=== PATIENT | female | born 1950 | race Caucasian/White ===

== ENCOUNTER 2017-12-03 17:48 | Emergency (ER) | payer MEDICARE ==
[~2017-12-03] VITALS: Ht 160 cm; Wt 66.4 kg
[~2017-12-03 17:48] MED LIST: ASPI-611 PO; CARB1TAB44 PO; ESTR2TAB PO; FENO145T38 PO; FERR325C; FLEC100T2 PO; FURO-150 PO; GABA-532 PO; MULT-342 PO; NITR0.4T48 SL; SIMV40TA4 PO
[2017-12-03 17:53] VITALS: BP 177/85
[2017-12-03] MEDS ORDERED: CIPR10DR LEFT EAR (18:39)
[2017-12-03] MEDS ORDERED: AZIT-57 PO (18:39)
[2017-12-03] MEDS ORDERED: FLUT16SP2 BOTHNARES (18:39)
== END 2017-12-03 18:59 | disposition home or self-care (01) ==
LOC: ER 17:49
DX: H66.92 Otitis media, unspecified, left ear (principal); I25.10 Atherosclerotic heart disease of native coronary artery without angina pectoris; I25.2 Old myocardial infarction; G89.29 Other chronic pain; Z95.1 Presence of aortocoronary bypass graft; Z90.710 Acquired absence of both cervix and uterus; Z98.890 Other specified postprocedural states; Z87.891 Personal history of nicotine dependence; Z88.8 Allergy status to other drugs, medicaments and biological substances; Z88.5 Allergy status to narcotic agent; Z79.82 Long term (current) use of aspirin; Z79.899 Other long term (current) drug therapy
CPT/HCPCS: 99283

== ENCOUNTER 2019-09-02 09:07 | Day surgery (SDC) | payer MEDICARE ==
[2019-09-02] VITALS (10 sets, daily range): BP systolic 104–175; BP diastolic 47–69
[~2019-09-02] VITALS: Ht 162.6 cm; Wt 70.4 kg
[~2019-09-02 09:07] MED LIST changes: +FLUT16SP2 BOTHNARES; +SIMV-45 PO; -SIMV40TA4 PO
[2019-09-02] MEDS ORDERED: normal saline 1,000 ML IV SCH (09:35)
[2019-09-02] MEDS ORDERED: diphenhydrAMINE 25mg capsule PO PRN (09:35)
[2019-09-02] MEDS ORDERED: DIAZ5TAB4 PO (09:51)
[2019-09-02] MEDS ORDERED: ATOR40TA PO (09:51)
[2019-09-02] MEDS ORDERED: GABA-769 PO (09:51)
[2019-09-02] MEDS ORDERED: LIDOcaine 1% (10mg/ml)w/preservative injection 20ml MDV ONE (10:01)
[2019-09-02] MEDS ORDERED: iohexol 350 MG/ML 50ML vial IV ONE (10:01)
[2019-09-02] MEDS ORDERED: iohexol 350MG/ML 100ml bottle IV ONE ×2 (10:01→11:18)
[2019-09-02] MEDS ORDERED: heparin 1,000unit/ml 10ml vial 10 ML ONE (10:01)
[2019-09-02 10:34] LABS: BASOPHILS % (AUTO) 1.1 % (0-1); EOSINOPHILS # (AUTO) 0.2 X10'3 (0-0.9); EOSINOPHILS % (AUTO) 4.1 % (0-6); HEMATOCRIT 36.8 % (35.0-45.0); HEMOGLOBIN 12.7 g/dl (12.0-16.0); LYMPHOCYTES # (AUTO) 1.8 X10'3 (1.1-4.8); LYMPHOCYTES % (AUTO) 40.2 % (21-51); MEAN CORPUSCULAR HGB CONC 34.6 g/dL (33.0-36.5); MEAN CORPUSCULAR VOLUME 89.7 FL (78-98); MEAN PLATELET VOLUME 8.6 FL (7.4-10.4); MONOCYTES # (AUTO) 0.3 X10'3 (0-0.9); MONOCYTES % (AUTO) 6.6 % (2-12); NEUTROPHILS # (AUTO) 2.2 X10'3 (1.8-7.7); PLATELET COUNT 233 X10'3 (140-440); RED CELL DISTRIBUTION WIDTH 13.3 % (11.5-14.5); WHITE BLOOD COUNT 4.5 X10'3 (4.5-11.0)
[2019-09-02] MEDS ORDERED: fentaNYL/PF 50MCG/1 ML 2ML syringe ONE (10:37)
[2019-09-02] MEDS ORDERED: diphenhydrAMINE 50 mg/ml inj ONE (10:37)
[2019-09-02] MEDS ORDERED: midazolam 2 mg/2 ml injection ONE ×2 (10:38→10:53)
[2019-09-02 10:45] LABS: ALBUMIN 3.4 G/DL (3.4-5.0); ANION GAP 5 (8-16); BLOOD UREA NITROGEN 13 MG/DL (7-18); BUN/CREATININE RATIO 16.7 (6.6-38.0); CALCIUM 8.5 MG/DL (8.5-10.1); CHLORIDE 108 MMOL/L (99-107); CREATININE 0.78 MG/DL (0.40-0.90); GLUCOSE 83 MG/DL (70-104); MAGNESIUM 1.9 MG/DL (1.5-2.4); SODIUM 140 MMOL/L (135-145); TOTAL CARBON DIOXIDE 26.9 MMOL/L (24-32); eGFR 73 ML/MIN
[2019-09-02 10:46] LABS: POTASSIUM 4.7 MMOL/L (3.5-5.1)
[2019-09-02] MEDS ORDERED: proCHLORperazine 10 MG/2 ml inj ONE (10:53)
[2019-09-02] MEDS ORDERED: HYDROcodone/acetaminophen 5mg/325mg tablet PO PRN (11:55)
[2019-09-02] MEDS ORDERED: proCHLORperazine 10 MG/2 ml inj IV PRN (11:55)
[2019-09-02] MEDS ORDERED: ondansetron/PF 4mg/2ml inj IV PRN (11:55)
[2019-09-02] MEDS ORDERED: HYDROcodone/acetaminophen 10/325mg tab PO PRN (11:55)
== END 2019-09-02 15:30 | disposition home or self-care (01) ==
LOC: SSTAY O 09:07 → MED 3N 09:08 → SSTAY O 15:30
PROVIDERS: ATTEND Internal Medicine Cardiovascular Disease
DX: R94.39 Abnormal result of other cardiovascular function study (principal); T82.855A Stenosis of coronary artery stent, initial encounter; I25.119 Atherosclerotic heart disease of native coronary artery with unspecified angina pectoris; I10 Essential (primary) hypertension; E03.9 Hypothyroidism, unspecified; G89.29 Other chronic pain; F32.9 Major depressive disorder, single episode, unspecified; G40.909 Epilepsy, unspecified, not intractable, without status epilepticus; I48.0 Paroxysmal atrial fibrillation; E78.00 Pure hypercholesterolemia, unspecified; Z87.11 Personal history of peptic ulcer disease; Z90.710 Acquired absence of both cervix and uterus; Z98.890 Other specified postprocedural states; Z79.899 Other long term (current) drug therapy; Z87.891 Personal history of nicotine dependence; Z88.5 Allergy status to narcotic agent; Z88.8 Allergy status to other drugs, medicaments and biological substances; Y83.8 Other surgical procedures as the cause of abnormal reaction of the patient, or of later complication, without mention of misadventure at the time of the procedure; Y92.89 Other specified places as the place of occurrence of the external cause; Z82.49 Family history of ischemic heart disease and other diseases of the circulatory system; Z80.0 Family history of malignant neoplasm of digestive organs
CPT/HCPCS: 36415; 80048; 83735; 85025; 93005; 93459; 99152; 99153; C1769; C1894; J0780; J1200; J1644; J2001; J2250; J3010; Q9967; A4620; A6258; C1751; C1760; GO378

== ENCOUNTER 2019-10-28 05:44 | Day surgery (SDC) | payer MEDICARE ==
[2019-10-21 14:01] LABS: BASOPHILS % (AUTO) 0.8 % (0-1); EOSINOPHILS # (AUTO) 0.1 X10'3 (0-0.9); EOSINOPHILS % (AUTO) 2.7 % (0-6); LYMPHOCYTES # (AUTO) 1.8 X10'3 (1.1-4.8); LYMPHOCYTES % (AUTO) 38.9 % (21-51); MEAN CORPUSCULAR HEMOGLOBIN 30.9 PG (27.0-31.0); MEAN CORPUSCULAR HGB CONC 33.8 g/dL (33.0-36.5); MEAN CORPUSCULAR VOLUME 91.4 FL (78-98); MEAN PLATELET VOLUME 8.4 FL (7.4-10.4); MONOCYTES # (AUTO) 0.3 X10'3 (0-0.9); MONOCYTES % (AUTO) 7.1 % (2-12); NEUTROPHILS # (AUTO) 2.3 X10'3 (1.8-7.7); NEUTROPHILS % (AUTO) 50.5 % (42-75); PRE OP HEMATOCRIT 40.2 % (35.0-45.0); PRE OP HEMOGLOBIN 13.6 g/dL (12.0-16.0); PRE OP PLATELET COUNT 266 X10'3 (140-440)
[2019-10-21 14:05] LABS: ALBUMIN 3.7 G/DL (3.4-5.0); ALBUMIN/GLOBULIN RATIO 1.1 (1.1-1.5); ALKALINE PHOSPHATASE 53 IU/L (46-116); BLOOD UREA NITROGEN 14 MG/DL (7-18); BUN/CREATININE RATIO 16.5 (6.6-38.0); CALCIUM 8.8 MG/DL (8.5-10.1); CHLORIDE 106 MMOL/L (99-107); CREATININE 0.85 MG/DL (0.40-0.90); PRE OP ALT 16 U/L (30-65); PRE OP ANION GAP 4 (8-16); PRE OP AST 16 U/L (10-37); PRE OP BILIRUB, TOTAL 0.2 MG/DL (0.0-1.0); PRE OP GLUCOSE 86 MG/DL (70-104); PRE OP POTASSIUM 4.8 MMOL/L (3.4-5.1); PRE OP SODIUM 139 MMOL/L (135-145); TOTAL CARBON DIOXIDE 28.6 MMOL/L (24-32); TOTAL PROTEIN 7.1 G/DL (6.4-8.2); eGFR 66 ML/MIN
[2019-10-28] VITALS (8 sets, daily range): BP systolic 135–148; BP diastolic 62–76
[~2019-10-28] VITALS: Ht 162.6 cm; Wt 70.8 kg
[~2019-10-28 05:44] MED LIST changes: +ATOR40TA PO; -CARB1TAB44 PO; +COQ PO; +DIAZ5TAB4 PO; +DUTA0.5C40 PO; -FENO145T38 PO; +FENO67CA PO; -FERR325C; -FLEC100T2 PO; +FLEC50TA28 PO; -FLUT16SP2 BOTHNARES; -FURO-150 PO; -GABA-532 PO; +GABA-769 PO; +NORT25CA5 PO; -SIMV-45 PO; +ceFAZolin 2gm in dextrose, iso 50 ML IV ONE; +famotidine 20mg tablet PO ONE; +ringers solution, lacted 1,000 ML IV SCH; +vancomycin 1,500 MG in NS 500ml IV soln IV ONE
[2019-10-28] MEDS ORDERED: LIDOcaine 1% (10mg/ml) 2ml vial ONE (07:44)
[2019-10-28] MEDS ORDERED: cloNIDine hcl/PF 100mcg/ml inj ONE (08:15)
[2019-10-28] MEDS ORDERED: LIDOcaine 2% 5ml jelly ONE (08:21)
[2019-10-28] MEDS ORDERED: TRANEXAMIC ACID 1 GM IN NACL,ISO-OS 100 ML IV ONE (08:45)
[2019-10-28] MEDS ORDERED: fentaNYL/PF 50MCG/1 ML 2ML syringe ONE (08:48)
[2019-10-28] MEDS ORDERED: midazolam 2 mg/2 ml injection ONE (08:51)
[2019-10-28] MEDS ORDERED: sevoflurane 250ml liquid IH ONE (08:54)
[2019-10-28] MEDS ORDERED: rocuronium 10mg/ml inj IV ONE (09:25)
[2019-10-28] MEDS ORDERED: propofol inj 20 ML IV ONE (09:25)
[2019-10-28] MEDS ORDERED: ROPIVAcaine 0.5% (5mg/ml) 30ml vial ONE (09:25)
[2019-10-28] MEDS ORDERED: LIDOcaine 2% (20mg/ml) 5ml vial ONE (09:25)
[2019-10-28] MEDS ORDERED: LIDOcaine 1%/PF 5ML 10 MG/ML VIAL ONE (09:26)
[2019-10-28] MEDS ORDERED: dexamethasone sod phosphate 4mg/ml inj. ONE (09:26)
[2019-10-28] MEDS ORDERED: ePHEDrine 50MG/ML INJ. ONE (09:54)
[2019-10-28] MEDS ORDERED: 0.9 % SODIUM CHLORIDE 10 ML VIAL ONE (09:54)
[2019-10-28] MEDS ORDERED: ondansetron/PF 4mg/2ml inj ONE (10:03)
[2019-10-28] MEDS ORDERED: HYDROcodone/acetaminophen 10/325mg tab PO PRN (10:50)
[2019-10-28] MEDS ORDERED: neostigmine methylsulfate 1 MG/ML 10ml vial ONE (10:58)
[2019-10-28] MEDS ORDERED: glycopyrrolate 0.2mg/ml inj ONE (10:58)
--- NOTE | 2019-10-28 11:06 | NUR ---
Received from OR via , accompanied by Anesthesiologist DR NORWOOD and report given by Anesthesiolgist. AWAKENS TO VOICE. VITALS STABLE. DRESSING DI. SANDEEP PAIN. RUE IN SIMPLE SLING. NO MOVEMENT TO RUE DUE TO BLOCK. FINGERS WARM AND PINK.
[2019-10-28] MEDS ORDERED: ringers solution, lacted 1,000 ML IV SCH (12:11)
[2019-10-28] MEDS ORDERED: ondansetron/PF 4mg/2ml inj IV PRN (12:15)
[2019-10-28] MEDS ORDERED: meperidine/PF 25mg/ml syringe IV PRN ×3 (12:15)
[2019-10-28] MEDS ORDERED: proCHLORperazine 10 MG/2 ml inj IV PRN (12:15)
[2019-10-28] MEDS ORDERED: HYDROmorphone inj. 0.5 MG/0.5 ML DISP.SYRIN IV PRN ×2 (12:15)
--- NOTE | 2019-10-28 12:16 | NUR ---
AWAKE AND ORIENTED. VITALS STABLE. DRESSING DI. SANDEEP PAIN. HOME WITH HER SPOUSE AT THIS TIME.
== END 2019-10-28 12:16 | disposition home or self-care (01) ==
LOC: PAS 05:44
PROVIDERS: ATTEND Orthopaedic Surgery
DX: M19.011 Primary osteoarthritis, right shoulder (principal); M75.41 Impingement syndrome of right shoulder; M75.111 Incomplete rotator cuff tear or rupture of right shoulder, not specified as traumatic; M75.01 Adhesive capsulitis of right shoulder; G89.18 Other acute postprocedural pain; F41.9 Anxiety disorder, unspecified; I48.91 Unspecified atrial fibrillation; I25.10 Atherosclerotic heart disease of native coronary artery without angina pectoris; F32.9 Major depressive disorder, single episode, unspecified; K21.9 Gastro-esophageal reflux disease without esophagitis; E78.00 Pure hypercholesterolemia, unspecified; F43.10 Post-traumatic stress disorder, unspecified; Z88.5 Allergy status to narcotic agent; Z79.899 Other long term (current) drug therapy; Z95.1 Presence of aortocoronary bypass graft; Z90.710 Acquired absence of both cervix and uterus; Z98.890 Other specified postprocedural states; Z87.19 Personal history of other diseases of the digestive system; Z83.3 Family history of diabetes mellitus; Z82.49 Family history of ischemic heart disease and other diseases of the circulatory system; Z80.9 Family history of malignant neoplasm, unspecified
CPT/HCPCS: 29824; 29826; 36415; 64415; 80053; 82948; 85025; 87635; J0735; J1100; J2001; J2250; J2405; J2704; J2710; J3010; J3370; J7040; J7120; A4565; A4618; A6449; A7000; J2795; J3490

== ENCOUNTER 2020-11-13 05:34 | Day surgery (SDC) | payer MEDICARE ==
[2020-11-06 16:02] LABS: BASOPHILS % (AUTO) 0.4 % (0-1); EOSINOPHILS # (AUTO) 0.1 X10'3 (0-0.9); EOSINOPHILS % (AUTO) 1.3 % (0-6); LYMPHOCYTES % (AUTO) 37.8 % (21-51); MEAN CORPUSCULAR HEMOGLOBIN 30.5 PG (27.0-31.0); MEAN CORPUSCULAR HGB CONC 33.6 g/dL (33.0-36.5); MEAN CORPUSCULAR VOLUME 90.9 FL (78-98); MEAN PLATELET VOLUME 8.4 FL (7.4-10.4); MONOCYTES # (AUTO) 0.3 X10'3 (0-0.9); MONOCYTES % (AUTO) 6.3 % (2-12); NEUTROPHILS # (AUTO) 2.9 X10'3 (1.8-7.7); NEUTROPHILS % (AUTO) 54.2 % (42-75); PRE OP HEMATOCRIT 39.7 % (35.0-45.0); PRE OP HEMOGLOBIN 13.3 g/dL (12.0-16.0); PRE OP PLATELET COUNT 263 X10'3 (140-440); RED BLOOD COUNT 4.37 X10'6 (4.20-5.60); RED CELL DISTRIBUTION WIDTH 13.1 % (11.5-14.5)
[2020-11-06 16:33] LABS: ALBUMIN 3.9 G/DL (3.4-5.0); ALBUMIN/GLOBULIN RATIO 1.1 (1.1-1.5); ALKALINE PHOSPHATASE 52 IU/L (46-116); BLOOD UREA NITROGEN 15 MG/DL (7-18); BUN/CREATININE RATIO 17.4 (6.6-38.0); CALCIUM 8.8 MG/DL (8.5-10.1); CHLORIDE 106 MMOL/L (99-107); CREATININE 0.86 MG/DL (0.40-0.90); PRE OP ALT 22 U/L (30-65); PRE OP ANION GAP 11 (8-16); PRE OP AST 12 U/L (10-37); PRE OP BILIRUB, TOTAL 0.2 MG/DL (0.0-1.0); PRE OP GLUCOSE 85 MG/DL (70-104); PRE OP POTASSIUM 4.1 MMOL/L (3.4-5.1); PRE OP SODIUM 143 MMOL/L (135-145); TOTAL CARBON DIOXIDE 25.8 MMOL/L (24-32); TOTAL PROTEIN 7.4 G/DL (6.4-8.2); eGFR 65 ML/MIN
[~2020-11-13] VITALS: Ht 162.6 cm; Wt 68.0 kg
[2020-11-13] VITALS (8 sets, daily range): BP systolic 135–163; BP diastolic 63–75
[~2020-11-13 05:34] MED LIST changes: +CLOP75TA34 PO; -COQ PO; -DIAZ5TAB4 PO; +DUTA0.5C36 PO; -DUTA0.5C40 PO; -ESTR2TAB PO; +ESTR2TAB7 PO; -NORT25CA5 PO; -ceFAZolin 2gm in dextrose, iso 50 ML IV ONE; +cefazolin/dext.iso 2gm/100ml IV ONE; -vancomycin 1,500 MG in NS 500ml IV soln IV ONE
[2020-11-13] MEDS ORDERED: BUPIVAcaine/PF 2.5 mg/ml (0.25%) 30ml vial ONE (07:05)
[2020-11-13] MEDS ORDERED: midazolam 1 mg/ML 2ml injection ONE (07:30)
[2020-11-13] MEDS ORDERED: fentaNYL/PF 50MCG/1 ML 2ML syringe ONE (07:30)
[2020-11-13] MEDS ORDERED: ringers solution, lacted 1,000 ML IV SCH (07:50)
[2020-11-13] MEDS ORDERED: fentaNYL/PF 50MCG/1 ML 2ML syringe IV PRN ×2 (07:50)
[2020-11-13] MEDS ORDERED: ondansetron/PF 4mg/2ml inj IV PRN (07:50)
[2020-11-13] MEDS ORDERED: HYDROmorphone/PF 0.2 MG/ML SYRINGE IV PRN ×2 (07:50)
[2020-11-13] MEDS ORDERED: ROPIVAcaine 0.2% (10 MG/5 ML) BOLUS INJECTION INTERSCALE PRN (07:50)
[2020-11-13] MEDS ORDERED: meperidine/PF 25mg/ml syringe IV PRN (07:50)
[2020-11-13] MEDS ORDERED: ROPIVAcaine 0.2%/PF PUMP/bolus 545 ML INTERSCALE SCH (07:50)
[2020-11-13] MEDS ORDERED: glycopyrrolate 0.2mg/ml inj ONE (07:58)
[2020-11-13] MEDS ORDERED: sevoflurane 250ml liquid IH ONE (07:58)
[2020-11-13] MEDS ORDERED: acetaminophen 1000 MG/100ml vial IV ONE (07:58)
[2020-11-13] MEDS ORDERED: neostigmine methylsulfate 1 MG/ML 10ml vial ONE (07:58)
[2020-11-13] MEDS ORDERED: ePHEDrine 50MG/ML INJ. ONE (07:58)
[2020-11-13] MEDS ORDERED: rocuronium 10mg/ml inj IV ONE (07:58)
[2020-11-13] MEDS ORDERED: ROPIVAcaine 0.5% (5mg/ml) 30ml vial ONE (09:33)
[2020-11-13] MEDS ORDERED: LIDOcaine 1%/PF 5ML 10 MG/ML VIAL ONE (09:33)
[2020-11-13] MEDS ORDERED: dexamethasone sod phosphate 4mg/ml inj. ONE (09:33)
[2020-11-13] MEDS ORDERED: ondansetron/PF 4mg/2ml inj ONE (09:33)
[2020-11-13] MEDS ORDERED: propofol inj 20 ML IV ONE (09:33)
[2020-11-13] MEDS ORDERED: HYDROcodone/acetaminophen 10/325mg tab PO PRN (10:25)
--- NOTE | 2020-11-13 10:30 | NUR ---
Received from OR via , accompanied by Anesthesiologist DR ARMANDO and report given by Anesthesiolgist. AWAKENS TO VOICE. VITALS STABLE. DRESSING DI. SANDEEP PAIN. FINGERS WARM AND PINK. LUE IN A SLING.
--- NOTE | 2020-11-13 11:50 | NUR ---
ALERT AND ORIENTED. VITALS STABLE. DRESSING DI. SANDEEP PAIN. ONQ INSTRUCTIONS GIVEN. HOME WITH HER PSOUSE AT THIS TIME.
== END 2020-11-13 11:50 | disposition home or self-care (01) ==
LOC: PAS 05:34
PROVIDERS: ATTEND Orthopaedic Surgery
DX: M75.122 Complete rotator cuff tear or rupture of left shoulder, not specified as traumatic (principal); M75.42 Impingement syndrome of left shoulder; M19.012 Primary osteoarthritis, left shoulder; M75.22 Bicipital tendinitis, left shoulder; M75.52 Bursitis of left shoulder; G89.18 Other acute postprocedural pain; F41.9 Anxiety disorder, unspecified; I48.91 Unspecified atrial fibrillation; F32.9 Major depressive disorder, single episode, unspecified; K21.9 Gastro-esophageal reflux disease without esophagitis; E78.00 Pure hypercholesterolemia, unspecified; I25.10 Atherosclerotic heart disease of native coronary artery without angina pectoris; M19.072 Primary osteoarthritis, left ankle and foot; M19.011 Primary osteoarthritis, right shoulder; F43.10 Post-traumatic stress disorder, unspecified; Z79.01 Long term (current) use of anticoagulants; Z79.899 Other long term (current) drug therapy; Z88.5 Allergy status to narcotic agent; Z90.710 Acquired absence of both cervix and uterus; Z95.1 Presence of aortocoronary bypass graft; Z98.890 Other specified postprocedural states; Z87.11 Personal history of peptic ulcer disease; Z95.5 Presence of coronary angioplasty implant and graft; Z83.3 Family history of diabetes mellitus; Z80.9 Family history of malignant neoplasm, unspecified; Z82.49 Family history of ischemic heart disease and other diseases of the circulatory system
CPT/HCPCS: 29824; 29826; 29827; 36415; 64416; 76937; 80053; 82948; 85025; 85610; 85730; C1713; J0131; J1100; J2250; J2405; J2704; J2710; J2795; J3010; J3490; J7120; 76942; A4618; A6449; A7000

== ENCOUNTER 2021-12-10 07:18 | Inpatient (IN) | payer MEDICARE ==
[2021-12-04 11:54] LABS: BASOPHILS % (AUTO) 0.6 % (0-1); EOSINOPHILS # (AUTO) 0.1 X10'3 (0-0.9); EOSINOPHILS % (AUTO) 2.8 % (0-6); LYMPHOCYTES # (AUTO) 2.1 X10'3 (1.1-4.8); LYMPHOCYTES % (AUTO) 41.2 % (21-51); MEAN CORPUSCULAR HEMOGLOBIN 30.2 PG (27.0-31.0); MEAN CORPUSCULAR HGB CONC 34.6 g/dL (33.0-36.5); MEAN CORPUSCULAR VOLUME 87.4 FL (78-98); MEAN PLATELET VOLUME 7.9 FL (7.4-10.4); MONOCYTES # (AUTO) 0.4 X10'3 (0-0.9); MONOCYTES % (AUTO) 7.2 % (2-12); NEUTROPHILS # (AUTO) 2.4 X10'3 (1.8-7.7); NEUTROPHILS % (AUTO) 48.2 % (42-75); PRE OP HEMATOCRIT 37.9 % (35.0-45.0); PRE OP HEMOGLOBIN 13.1 g/dL (12.0-16.0); PRE OP PLATELET COUNT 293 X10'3 (140-440); RED BLOOD COUNT 4.34 X10'6 (4.20-5.60)
[2021-12-04 12:07] LABS: ALBUMIN 3.8 G/DL (3.4-5.0); ALBUMIN/GLOBULIN RATIO 1.1 (1.1-1.5); ALKALINE PHOSPHATASE 50 IU/L (46-116); BLOOD UREA NITROGEN 11 MG/DL (7-18); BUN/CREATININE RATIO 13.8 (6.6-38.0); CALCIUM 8.9 MG/DL (8.5-10.1); CHLORIDE 108 MMOL/L (99-107); PRE OP ALT 21 U/L (30-65); PRE OP ANION GAP 9 (8-16); PRE OP AST 17 U/L (10-37); PRE OP BILIRUB, TOTAL 0.2 MG/DL (0.0-1.0); PRE OP GLUCOSE 80 MG/DL (70-104); PRE OP POTASSIUM 4.3 MMOL/L (3.4-5.1); PRE OP SODIUM 142 MMOL/L (135-145); TOTAL CARBON DIOXIDE 25.2 MMOL/L (24-32); TOTAL PROTEIN 7.2 G/DL (6.4-8.2); eGFR 71 ML/MIN
[~2021-12-10] VITALS: Ht 160 cm; Wt 69.6 kg
[2021-12-10] VITALS (17 sets, daily range): BP systolic 109–183; BP diastolic 41–96
[~2021-12-10 07:18] MED LIST changes: -CLOP75TA34 PO; +CYAN100020 SL; +DIAZ5TAB4 PO; -FENO67CA PO; +FENO67CA10 PO; +FERR-121 PO; -GABA-769 PO; +LYR75C PO; +ceFAZolin inj. 2,000 MG in dextrose 5%-water 100 ML IV ONE; -cefazolin/dext.iso 2gm/100ml IV ONE; -ringers solution, lacted 1,000 ML IV SCH; +tranexamic acid 650mg tablet PO ONE; +vancomycin/NS 1 GM in NS 250 ML IV ONE
--- NOTE | 2021-12-10 07:30 | NUR ---
EDUCATED PATIENT ON THE USE OF THE INCENTIVE SPIROMETER AND ITS IMPORTANCE. EDUCATED PATIENT ON THE USE OF THE ON Q PUMP. PATIENT STATES SHE READ THE BROCHURE AND USED THE MUPIROCIN CREAM ORDERED. PULSES PRESENT AND MARKED. IV PATENT AND ABX RUNNING.
[2021-12-10] MEDS: ringers solution, lacted 1,000 ML IV SCH ×2 (08:02→15:29)
--- NOTE | 2021-12-10 09:10 | NUR ---
VANCO HAS BEEN RUNNING AT 250ML/HR PER DR ORDER SINCE 801. PATIENT IS COMPLAINING OF ITCHING IN THE SCALP. ASSESSED THE IV FOR REDNESS AND SENSITIVITY. NO ISSUES. SET THE VANCO AT 100ML/HR. PATIENT STATES COMFORT. WILL RECHECK IN A FEW MINUTES.
--- NOTE | 2021-12-10 09:13 | NUR ---
TOILETED PATIENT AT 0910. FLUSHED IV PATENT AND RUNNING ABX
[2021-12-10] MEDS ORDERED: diazepam 5mg tablet PO STA (09:45)
[2021-12-10] MEDS ORDERED: ketorolac trometh. 30mg/ml inj. ONE (09:58)
[2021-12-10] MEDS ORDERED: ROPIVAcaine 0.5% (5mg/ml) 30ml vial ONE ×2 (09:58→11:12)
[2021-12-10] MEDS ORDERED: ondansetron/PF 4mg/2ml inj IV PRN ×2 (10:55→13:30)
[2021-12-10] MEDS ORDERED: morphine 2 MG/ML inj. syringe IV PRN (10:55)
[2021-12-10] MEDS ORDERED: ringers solution, lacted 1,000 ML IV SCH (10:55)
[2021-12-10] MEDS ORDERED: HYDROmorphone/PF 0.2 MG/ML SYRINGE IV PRN ×2 (10:55)
[2021-12-10] MEDS ORDERED: labetalol 5mg/ml 20ml inj. IV PRN (10:55)
[2021-12-10] MEDS ORDERED: ROPIVAcaine 0.2% (10 MG/5 ML) BOLUS INJECTION INTERSCALE PRN (10:55)
[2021-12-10] MEDS ORDERED: ROPIVAcaine 0.2%/PF PUMP/bolus 545 ML INTERSCALE SCH (10:55)
[2021-12-10] MEDS ORDERED: hydrALAZINE 20mg/ml inj. IV PRN (10:55)
[2021-12-10] MEDS ORDERED: fentaNYL/PF 50MCG/1 ML 2ML syringe IV PRN ×2 (10:55)
[2021-12-10] MEDS ORDERED: sevoflurane 250ml liquid IH ONE (11:15)
[2021-12-10] MEDS ORDERED: fentaNYL/PF 50MCG/1 ML 2ML syringe ONE (11:16)
[2021-12-10] MEDS ORDERED: midazolam 1 mg/ML 2ml injection ONE (11:16)
[2021-12-10] MEDS ORDERED: LIDOcaine 1%/PF 5ML 10 MG/ML VIAL ONE (11:17)
[2021-12-10] MEDS ORDERED: ondansetron/PF 4mg/2ml inj ONE ×2 (11:17)
[2021-12-10] MEDS ORDERED: propofol inj 20 ML IV ONE (11:17)
--- NOTE | 2021-12-10 13:20 | NUR ---
PT ARRIVED TO VIA BED ACCOMPANIED BY DR DEUTSCH-ANESTHESIA REPORT GIVEN, PT SLEEPING, VSS, NO SN/SX OF PAIN, +PULSE TO LEFT EXTREMITY, SCDS ON, SHOULDER WRAP AND POWDER PACK TO LEFT SHOULDER-CDI, ON-Q CATHETER PRESENT, PIV 20G TO RIGHT UE.
[2021-12-10] MEDS ORDERED: HYDROmorphone 1 mg/ml syringe IV PRN (13:30)
[2021-12-10] MEDS ORDERED: HYDROmorphone inj. 0.5 MG/0.5 ML DISP.SYRIN IV PRN (13:30)
[2021-12-10] MEDS ORDERED: naloxone 0.4 mg/ml inj IV PRN (13:30)
[2021-12-10] MEDS ORDERED: diphenhydrAMINE 25mg capsule PO PRN ×2 (13:30)
[2021-12-10] MEDS ORDERED: magnesium hydroxide 30ml (MOM) UD suspension PO PRN (13:30)
[2021-12-10] MEDS ORDERED: bisacodyl 10mg suppository rectal RC PRN (13:30)
[2021-12-10] MEDS ORDERED: oxyCODONE IR 5mg (immed. release) tablet PO PRN (13:30)
[2021-12-10] MEDS ORDERED: acetaminophen 325mg tablet PO PRN (13:30)
--- NOTE | 2021-12-10 13:30 | NUR ---
PT UNRESPONSIVE, POOR OXYGENATION -USING JAW THRUST TO ASSIST WITH BREATHING, ORAL AIRWAY INSERTED TO ASSIST WITH OXYGENATION-PT DOING BETTER NOW.
--- NOTE | 2021-12-10 13:40 | NUR ---
PT MORE AWAKE NOW, ORAL AIRWAY OUT-ABLE TO MAINTAIN OWN AIRWAY, VSS, NEURO CHECKS INTACT, LEFT ARM-PINK, WARM
--- NOTE | 2021-12-10 14:33 | NUR ---
received report from anton khan
--- NOTE | 2021-12-10 14:40 | NUR ---
PT DOING WELL, AWAKE, TOLERATING ICE CHIPS, VSS ON ROOM AIR, LEFT SHOULDER WRAP WITH ICE PACK-CDI, ABLE TO MOVE FINGERS-BLOCK STILL INTACT, ON-Q ATTACHED AND STARTED AT 2ML, PT EDUCATED ON USE, SCDS ON, REPORT CALLED TO CATRACHO RN-ALL QUESTIONS ANSWERED, PT TAKEN VIA BED WITH ALL BELONGINGS TO ROOM 4014B, BED LOW AND LOCKED, CALL LIGHT IN REACH, COUNTY SURVEYOR IN TO RECEIVE PT, PRIMARY RN AWARE OF PT ARRIVAL.
[2021-12-10] MEDS: acetaminophen 325mg tablet PO SCH ×2 (15:29→20:58)
[2021-12-10] MEDS: potassium cl 20mEq in 1/2 NS 1,000 ML IV SCH ×2 (15:29→20:58)
[2021-12-10] MEDS: ceFAZolin/D5W- 1GM premix 50 ML IV SCH (17:03)
--- NOTE | 2021-12-10 18:31 | NUR ---
gave report to anton galeas
[2021-12-10] MEDS ORDERED: vancomycin/NS 1 GM ADD-VANTAGE 250 ML IV SCH (20:00)
[2021-12-10] MEDS: pregabalin 75mg capsule PO SCH (20:57)
[2021-12-10] MEDS: flecainide 50mg tablet PO SCH (20:58)
[2021-12-10] MEDS ORDERED: non-formulary drug (Atorvastatin Calcium* (Lipitor*) 1 TABLET) PO SCH (21:00)
[2021-12-10] MEDS: sennosides 8.6mg tablet PO SCH (21:03)
[2021-12-10] MEDS: oxyCODONE IR 5mg (immed. release) tablet PO PRN (23:49)
[2021-12-11] MEDS: ceFAZolin/D5W- 1GM premix 50 ML IV SCH (01:13)
[2021-12-11] MEDS: acetaminophen 325mg tablet PO SCH ×4 (01:22→20:15)
[2021-12-11] MEDS: diazepam 5mg tablet PO SCH ×2 (01:22→23:20)
[2021-12-11 01:59] VITALS: BP 122/54
[2021-12-11] MEDS: potassium cl 20mEq in 1/2 NS 1,000 ML IV SCH ×3 (05:30→17:15)
[2021-12-11 06:00] VITALS: BP 118/57
--- NOTE | 2021-12-11 07:05 | NUR ---
Patient in room [facility]TH[facility] 4014. I have received report from Prudence BUTCHER and had the opportunity to ask questions and assume patient care.
[2021-12-11 07:21] LABS: ANION GAP 7 (8-16); CHLORIDE 108 MMOL/L (99-107); POTASSIUM 4.7 MMOL/L (3.5-5.1); SODIUM 138 MMOL/L (135-145); TOTAL CARBON DIOXIDE 23.2 MMOL/L (24-32)
[2021-12-11 07:25] LABS: BASOPHILS % (AUTO) 0 % (0-1); EOSINOPHILS % (AUTO) 0 % (0-6); HEMATOCRIT 32.5 % (35.0-45.0); HEMOGLOBIN 10.9 g/dl (12.0-16.0); LYMPHOCYTES # (AUTO) 0.9 X10'3 (1.1-4.8); MEAN CORPUSCULAR HEMOGLOBIN 29.8 PG (27.0-31.0); MEAN CORPUSCULAR HGB CONC 33.5 g/dL (33.0-36.5); MEAN PLATELET VOLUME 8.3 FL (7.4-10.4); MONOCYTES # (AUTO) 0.6 X10'3 (0-0.9); MONOCYTES % (AUTO) 7.1 % (2-12); NEUTROPHILS # (AUTO) 6.7 X10'3 (1.8-7.7); NEUTROPHILS % (AUTO) 81.9 % (42-75); PLATELET COUNT 242 X10'3 (140-440); RED BLOOD COUNT 3.65 X10'6 (4.20-5.60); RED CELL DISTRIBUTION WIDTH 13.2 % (11.5-14.5); WHITE BLOOD COUNT 8.2 X10'3 (4.5-11.0)
[2021-12-11] MEDS ORDERED: non-formulary drug (Aspirin (Aspir 81) 1 TAB) PO SCH (08:00)
[2021-12-11] MEDS: aspirin 325mg tablet PO SCH (08:26)
[2021-12-11] MEDS: ferrous sulfate 325mg tablet PO SCH (08:26)
[2021-12-11] MEDS: cyanocobalamin 500mcg tablet PO SCH (08:26)
[2021-12-11] MEDS: multivitamins, therapeutics tablet PO SCH (08:27)
[2021-12-11] MEDS: fenofibrate 145mg tablet PO SCH (08:28)
[2021-12-11] MEDS: flecainide 50mg tablet PO SCH ×2 (08:28→20:14)
[2021-12-11] MEDS: dutasteride 0.5 MG capsule PO SCH (11:06)
[2021-12-11] MEDS: estradiol 1mg tablet PO SCH (11:07)
--- NOTE | 2021-12-11 13:56 | NUR ---
DR KAY AWARE THAT PATIENT HAD TROUBLE TALKING AND SOME TROUBLE TAKING DEEP BREATH WITH ON Q BALL SO HE SAID OKAY TO DC
[2021-12-11 14:00] VITALS: BP 126/58
[2021-12-11] MEDS ORDERED: ondansetron 4mg rapidly disintigrating tab PO PRN ×2 (14:43→14:45)
--- NOTE | 2021-12-11 16:37 | NUR ---
MAINTENANCE MACHINE REPAIRER documentation: I have reviewed and agree with all interventions, assessments performed and documented by Vanessa MCBRIDE.
[2021-12-11 18:00] VITALS: BP 123/47
[2021-12-11 18:18] VITALS: BP 123/47
--- NOTE | 2021-12-11 18:32 | NUR ---
Problems reprioritized. Patient report given, questions answered & plan of care reviewed with Prudence BUTCHER.
[2021-12-11] MEDS: sennosides 8.6mg tablet PO SCH (20:14)
[2021-12-11] MEDS: pregabalin 75mg capsule PO SCH (20:14)
[2021-12-11] MEDS: oxyCODONE IR 5mg (immed. release) tablet PO PRN (20:17)
[2021-12-11 22:00] VITALS: BP 112/52
[2021-12-12] MEDS: acetaminophen 325mg tablet PO SCH ×2 (02:00→07:15)
[2021-12-12] MEDS: oxyCODONE IR 5mg (immed. release) tablet PO PRN (05:29)
[2021-12-12] MEDS: potassium cl 20mEq in 1/2 NS 1,000 ML IV SCH (05:30)
[2021-12-12 06:00] VITALS: BP 124/42
--- NOTE | 2021-12-12 06:21 | NUR ---
Patient in room [facility]TH[facility] 4014. I have received report from Prudence BUTCHER and had the opportunity to ask questions and assume patient care.
[2021-12-12] MEDS: fenofibrate 145mg tablet PO SCH (07:14)
[2021-12-12] MEDS: cyanocobalamin 500mcg tablet PO SCH (07:15)
[2021-12-12] MEDS: flecainide 50mg tablet PO SCH (07:15)
[2021-12-12] MEDS: ferrous sulfate 325mg tablet PO SCH (07:15)
[2021-12-12] MEDS: multivitamins, therapeutics tablet PO SCH (07:15)
[2021-12-12] MEDS: dutasteride 0.5 MG capsule PO SCH (07:16)
[2021-12-12] MEDS: estradiol 1mg tablet PO SCH (07:16)
[2021-12-12 07:45] LABS: BASOPHILS % (AUTO) 0.3 % (0-1); EOSINOPHILS # (AUTO) 0.2 X10'3 (0-0.9); EOSINOPHILS % (AUTO) 2.7 % (0-6); HEMATOCRIT 27.4 % (35.0-45.0); HEMOGLOBIN 9.6 g/dl (12.0-16.0); LYMPHOCYTES % (AUTO) 34.2 % (21-51); MEAN CORPUSCULAR HEMOGLOBIN 30.9 PG (27.0-31.0); MEAN CORPUSCULAR HGB CONC 34.9 g/dL (33.0-36.5); MEAN CORPUSCULAR VOLUME 88.6 FL (78-98); MEAN PLATELET VOLUME 8.3 FL (7.4-10.4); MONOCYTES # (AUTO) 0.4 X10'3 (0-0.9); MONOCYTES % (AUTO) 6.8 % (2-12); NEUTROPHILS # (AUTO) 3.3 X10'3 (1.8-7.7); PLATELET COUNT 205 X10'3 (140-440); RED CELL DISTRIBUTION WIDTH 13.3 % (11.5-14.5); WHITE BLOOD COUNT 5.9 X10'3 (4.5-11.0)
[2021-12-12 10:00] VITALS: BP 120/51
[2021-12-12] MEDS: aspirin 325mg tablet PO SCH (10:11)
[2021-12-12] MEDS ORDERED: acetaminophen 325mg tablet PO PRN (13:30)
--- NOTE | 2021-12-12 17:13 | NUR ---
Patient DC home with spouse in personal vehicle. Discharge information was provided to patient and her spouse which they both verbalized understanding. Patient was then assisted with all belonging to her vehicle.
== END 2021-12-12 13:40 | disposition home or self-care (01) | DRG 483 ==
LOC: PAS 07:18 → ORTHO 4S 13:32
PROVIDERS: ADMIT Orthopaedic Surgery; ATTEND Orthopaedic Surgery
PROC: 0LS40ZZ Reposition Left Upper Arm Tendon, Open Approach (ICD-10-PCS; 2021-12-10)
PROC: 3E0T3BZ Introduction of Anesthetic Agent into Peripheral Nerves and Plexi, Percutaneous Approach (ICD-10-PCS; 2021-12-10)
PROC: 3E0T33Z Introduction of Anti-inflammatory into Peripheral Nerves and Plexi, Percutaneous Approach (ICD-10-PCS; 2021-12-10)
PROC: 0RRK00Z Replacement of Left Shoulder Joint with Reverse Ball and Socket Synthetic Substitute, Open Approach (ICD-10-PCS; principal; 2021-12-10 11:15)
DX: M19.012 Primary osteoarthritis, left shoulder (principal); M65.812 Other synovitis and tenosynovitis, left shoulder; M75.122 Complete rotator cuff tear or rupture of left shoulder, not specified as traumatic; F41.9 Anxiety disorder, unspecified; F32.A Depression, unspecified; K21.9 Gastro-esophageal reflux disease without esophagitis; I25.10 Atherosclerotic heart disease of native coronary artery without angina pectoris; I48.91 Unspecified atrial fibrillation; Z79.899 Other long term (current) drug therapy
CPT/HCPCS: 36415; 73020; 80051; 80053; 82948; 85025; 87081; 97110; 97161; 97530; A4618; A7000; C1776; G0378; J0690; J1885; J2250; J2405; J2704; J2795; J3010; J3370; J3480; J3490; J7060; J7120